=== PATIENT | female | born 1975 | race Caucasian/White ===

== ENCOUNTER 2017-01-21 11:37 | Emergency (ER) | payer OTHER ==
[2017-01-21 13:56] LABS: BASOPHIL % 0.3 % (0-2); PLATELET COUNT 290 x10^3mcL (130-400); RED CELL DISTRIBUTION WIDTH 12.8 % (11.5-14.5)
[2017-01-21 14:04] LABS: CALCIUM 9.1 mg/dL (8.5-10.1); CARBON DIOXIDE 31.1 mmol/L (21-32); CHLORIDE SERUM 102 mmol/L (98-107); CREATININE SERUM 0.7 mg/dL (0.6-1.0); GFR1 > 60 mL/min; GLUCOSE SERUM 88 mg/dL (74-106); POTASSIUM SERUM 3.3 mmol/L (3.5-5.1); SODIUM SERUM 141 mmol/L (136-145)
[2017-01-21 14:08] LABS: ALBUMIN 4.1 g/dL (3.4-5.0); ALKALINE PHOSPHATASE 72 U/L (46-116); ALT/SGPT 20 U/L (14-59); AST/SGOT 23 U/L (15-37); BILIRUBIN TOTAL 0.8 mg/dL (0.20-1.00); TOTAL PROTEIN, SERUM 7.8 g/dL (6.4-8.2)
[2017-01-21 15:41] VITALS: BP 95/66
== END 2017-01-21 15:41 | disposition home or self-care (01) ==
LOC: EDBD 11:37 → ED 11:37
PROVIDERS: Emergency Medicine
DX: R07.89 Other chest pain (principal); E05.00 Thyrotoxicosis with diffuse goiter without thyrotoxic crisis or storm
CPT/HCPCS: 83880; J1885; J2405

== ENCOUNTER 2017-12-04 14:02 | Emergency (ER) | payer OTHER ==
[~2017-12-04] VITALS: Ht 167.6 cm; Wt 92.6 kg
[2017-12-04 14:11] VITALS: Ht 167.6 cm; Wt 92.6 kg
[2017-12-04 15:07] LABS: BASOPHIL % 0.5 % (0-2); PLATELET COUNT 280 x10^3mcL (130-400); RED CELL DISTRIBUTION WIDTH 13.4 % (11.5-14.5)
[2017-12-04 15:18] LABS: CARBON DIOXIDE 25.5 mmol/L (21-32); CHLORIDE SERUM 104 mmol/L (98-107); CREATININE SERUM 0.8 mg/dL (0.6-1.0); GFR1 > 60 mL/min; GLUCOSE SERUM 89 mg/dL (74-106); POTASSIUM SERUM 3.7 mmol/L (3.5-5.1); SODIUM SERUM 136 mmol/L (136-145)
[2017-12-04 15:23] LABS: ALKALINE PHOSPHATASE 70 U/L (46-116); ALT/SGPT 22 U/L (14-59); AMYLASE 41 U/L (25-115); AST/SGOT 25 U/L (15-37); BILIRUBIN TOTAL 0.5 mg/dL (0.20-1.00); LIPASE 117 IU/L (73-393); TOTAL PROTEIN, SERUM 7.4 g/dL (6.4-8.2)
[2017-12-04 16:36] VITALS: BP 121/77
== END 2017-12-04 16:36 | disposition home or self-care (01) ==
LOC: ED 14:02
PROVIDERS: Emergency Medicine
DX: K29.70 Gastritis, unspecified, without bleeding (principal)
CPT/HCPCS: J2270; J2405; J7030; Q0092

== ENCOUNTER 2019-01-09 09:51 | Emergency (ER) | payer OTHER ==
[~2019-01-09] VITALS: Ht 167.6 cm; Wt 93.9 kg
[2019-01-09 10:07] VITALS: Ht 167.6 cm; Wt 93.9 kg
[2019-01-09 10:40] LABS: BASOPHIL % 0.2 % (0-2); PLATELET COUNT 266 x10^3mcL (130-400)
[2019-01-09 11:17] LABS: CALCIUM 8.9 mg/dL (8.5-10.1); CARBON DIOXIDE 26.3 mmol/L (21-32); CHLORIDE SERUM 103 mmol/L (98-107); CREATININE SERUM 0.7 mg/dL (0.6-1.0); GFR1 > 60 mL/min; GLUCOSE SERUM 86 mg/dL (74-106); SODIUM SERUM 137 mmol/L (136-145)
[2019-01-09 11:22] LABS: ALBUMIN 3.8 g/dL (3.4-5.0); ALKALINE PHOSPHATASE 82 U/L (46-116); ALT/SGPT 29 U/L (14-59); AST/SGOT 35 U/L (15-37); BILIRUBIN TOTAL 0.42 mg/dL (0.20-1.00); LIPASE 128 IU/L (73-393); TOTAL PROTEIN, SERUM 7.6 g/dL (6.4-8.2)
[2019-01-09 12:06] LABS: UA SPECIFIC GRAVITY 1.015 (1.005-1.035); microscopic required? YES; urine erythrocyte 2+ (NEGATIVE)
[2019-01-09 14:51] VITALS: BP 105/69
== END 2019-01-09 14:51 | disposition home or self-care (01) ==
LOC: ED 09:51
PROVIDERS: Emergency Medicine
DX: N20.0 Calculus of kidney (principal); N39.0 Urinary tract infection, site not specified; Z90.710 Acquired absence of both cervix and uterus; Z98.890 Other specified postprocedural states
CPT/HCPCS: J0696; J1885; J2405; J7030; Q9967